=== PATIENT | male | born 1985 | race American Indian/Alaskan Native ===

== ENCOUNTER 2019-11-16 18:30 | Emergency (ER) | payer SELFPAY ==
[2019-11-16] MEDS ORDERED: ASPIRIN 325 MG TAB PO ONE (20:00)
--- NOTE | 2019-11-16 20:00 | Event Note ---
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 Further treatment and workup at subsequent clinical providers discretion. Patient/guardian urged not to elope from the ED as their condition may be serious if not clinically assessed and managed. Initial orders include: Labs, EKG, chest x-ray
[2019-11-16 20:31] LABS: Basophils % (Auto) 0.6 % (0.0-1.8); Eosinophils # (Auto) 0.4 K/mm3 (0.0-0.4); Eosinophils % (Auto) 6.3 % (0.0-4.3); Hematocrit 43.7 % (35.5-45.6); Hemoglobin 14.4 gm/dl (11.8-15.2); Lymphocytes # (Auto) 2.7 K/mm3 (1.2-5.4); Lymphocytes % (Auto) 44.8 % (13.4-35.0); Mean Corpuscular HGB Conc 33 % (32-34); Mean Corpuscular Volume 91 fl (84-94); Monocytes # (Auto) 0.4 K/mm3 (0.0-0.8); Monocytes % (Auto) 7.1 % (0.0-7.3); Platelet Count 357 K/mm3 (140-440); Red Blood Count 4.79 M/mm3 (3.65-5.03); Red Cell Distribution Width 13.2 % (13.2-15.2)
[2019-11-16 20:51] LABS: BUN/Creatinine Ratio 6; Blood Urea Nitrogen 6 mg/dL (9-20); Hemolysis Index 12
--- NOTE | 2019-11-16 21:15 | XRay Report ---
CHEST 1 VIEW INDICATION: Chest Pain COMPARISON: None FINDINGS: SUPPORT DEVICES: None. HEART / MEDIASTINUM: No significant abnormality. LUNGS / PLEURA: No significant pulmonary or pleural abnormality. No pneumothorax. ADDITIONAL FINDINGS: IMPRESSION: 1. No acute cardiopulmonary disease Signer Name: Mauricio Fried MD Signed: 11/16/2019 9:10 PM Workstation Name: [id number]
--- NOTE | 2019-11-17 00:27 | Emergency Department Report ---
HPI - General Chief Complaint: Chest Pain PUI?: No Time Seen by Provider: 11/17/19 00:20 - [facility] HPI: Room 20 The patient is a 34-year-old male present with a chief complaint of chest pain. Patient states this evening he was lying in bed when he became dizzy and nauseous and developed substernal chest pain that was sharp and intermittent in nature. Patient states he developed numbness and tingling to his left arm and left face. Patient states he had shortness of breath and nausea without vomiting associated with this chest pain. Patient denies diaphoresis. Patient states he still has chest pain and gives it a score of 2/10. Patient states he is never had a stress test or cardiac catheterization ED Past Medical Hx - Past Medical History Previous Medical History?: Yes Additional medical history: "SLIGHT HEART ATTACK" - Surgical History Past Surgical History?: No - Family History Family history: no significant - Social History Smoking Status: Current Some Day Smoker Substance Use Type: Alcohol (Occasional), Marijuana ED Review of Systems ROS: Stated complaint: BLOOD PRESURE Other details as noted in HPI Constitutional: denies: diaphoresis Respiratory: shortness of breath Cardiovascular: chest pain Gastrointestinal: nausea. denies: vomiting Neurological: paresthesias, other (Dizziness) Physical Exam - Physical Exam Vital Signs: Vital Signs 11/16/19 19:58 Temperature 97.9 F Pulse Rate 71 Respiratory 18 Rate Blood Pressure 143/97 O2 Sat by Pulse 99 Oximetry Physical Exam: GENERAL: The patient is well-developed well-nourished male lying on stretcher not appearing to be in acute distress. [] HEENT: Normocephalic. Atraumatic. Extraocular motions are intact. Patient has moist mucous membranes. NECK: Supple. Trachea midline CHEST/LUNGS: Clear to auscultation. There is no respiratory distress noted. HEART/CARDIOVASCULAR: Regular. There is no tachycardia. There is no gallop rub or murmur. ABDOMEN: Abdomen is soft, nontender. Patient has normal bowel sounds. There is no abdominal distention. SKIN: There is no rash. There is no edema. There is no diaphoresis. NEURO: The patient is awake, alert, and oriented. The patient is cooperative. The patient has normal speech MUSCULOSKELETAL: There is no evidence of acute injury. ED Course Vital Signs 11/16/19 19:58 Temperature 97.9 F Pulse Rate 71 Respiratory 18 Rate Blood Pressure 143/97 O2 Sat by Pulse 99 Oximetry ED Medical Decision Making - Lab Data Result diagrams: 11/16/19 20:08 11/16/19 20:08 Laboratory Tests 11/16/19 11/16/19 11/16/19 20:08 20:08 22:16 WBC 6.0 RBC 4.79 Hgb 14.4 Hct 43.7 MCV 91 MCH 30 MCHC 33 RDW 13.2 Plt Count 357 Lymph % (Auto) 44.8 H Hodgeman % (Auto) 7.1 Eos % (Auto) 6.3 H Baso % (Auto) 0.6 Lymph # 2.7 Hodgeman # 0.4 Eos # 0.4 Baso # 0.0 Seg Neutrophils % 41.2 Seg Neutrophils # 2.5 Sodium 138 Potassium 3.5 L Chloride 100.8 Carbon Dioxide 22 Anion Gap 19 BUN 6 L Creatinine 1.0 Estimated GFR > 60 BUN/Creatinine Ratio 6 Glucose 103 H Calcium 10.0 Troponin T < 0.010 < 0.010 - EKG Data -: EKG Interpreted by Me EKG shows normal: sinus rhythm Rate: normal (67 bpm) - EKG Data When compared to previous EKG there are: previous EKG unavailable Interpretation: other (No ischemic changes seen) - Radiology Data Radiology results: report reviewed (Chest x-ray), image reviewed (Chest x-ray) interpreted by me: Chest x-ray-no focal infiltrates, no pneumothorax Findings [facility] [address] [place] [address] XRay Report Signed Patient: IAM TO MR#: [id number] 4 : 1985 Acct:[id number] Age/Sex: 34 / M ADM Date: 11/16/19 Loc: ED Attending Dr: Ordering Physician: MEAGHAN SHEARER Date of Service: 11/16/19 Procedure(s): XR chest 1V ap Accession Number(s): [id number] cc: MEAGHAN SHEARER Fluoro Time In Minutes: CHEST 1 VIEW INDICATION: Chest Pain COMPARISON: None FINDINGS: SUPPORT DEVICES: None. HEART / MEDIASTINUM: No significant abnormality. LUNGS / PLEURA: No significant pulmonary or pleural abnormality. No pneumothorax. ADDITIONAL FINDINGS: IMPRESSION: 1. No acute cardiopulmonary disease Signer Name: Mauricio Fried MD Signed: 11/16/2019 9:10 PM Workstation Name: [id number] Transcribed By: WG Dictated By: Mauricio Fried MD Electronically Authenticated By: Mauricio Fried MD Signed Date/Time: 11/16/192109 DD/ 09 TD/TT: - Differential Diagnosis ACS, pericarditis, GERD Critical care attestation.: If time is entered above; I have spent that time in minutes in the direct care of this critically ill patient, excluding procedure time. ED Disposition Clinical Impression: Chest pain Disposition: DC-07 LEFT AGAINST MED ADVICE Is pt being admited?: No Does the pt Need Aspirin: Yes Condition: Undetermined Instructions: Chest Pain (ED) Referrals: PRIMARY CARE, [Primary Care Provider] - 3-5 Days Time of Disposition: 00:27 (Patient leaving AMA)
[2019-11-17 00:44] VITALS: BP 132/66
== END 2019-11-17 00:40 | disposition left against medical advice (07) ==
LOC: ED 18:30
DX: R07.9 Chest pain, unspecified (principal); I10 Essential (primary) hypertension; F17.200 Nicotine dependence, unspecified, uncomplicated; F12.90 Cannabis use, unspecified, uncomplicated
CPT/HCPCS: 36415; 71045; 80048; 84484; 85025; 93005